=== PATIENT | female | born 1965 | race Hispanic/Latino ===

== ENCOUNTER 2016-12-20 12:39 | Emergency (ER) | payer BC, OTHER ==
[2016-12-20 12:53] VITALS: BMI 64.3
--- NOTE | 2016-12-20 13:05 | ED PDOC ---
Arrival/HPI - General Chief Complaint: Trauma Time Seen by Provider: 12/20/16 12:50 Historian: Patient - History of Present Illness Narrative History of Present Illness (Text): 12/20/16 12:59 A 51 year old morbidly obese female, who denies any significant past medical history, presents to the emergency department for left sided shoulder pain, which began immediately prior to arrival from tripping over a sheet at work. 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 The patient denies any head trauma, back pain, neck pain, chest pain, headaches, nausea, dizziness, or any other complaints at this time. Time/Duration: Prior to Arrival Symptom Onset: Sudden Symptom Course: Unchanged Activities at Onset: Significant (tripped over a sheet ) Context: Work Associated Symptoms (Text): 12/20/16 13:26 Patient works in a hotel and just prior to arrival she tripped and fell over a sheet injuring her nondominant left upper extremity. No head trauma. No neck pain. Past Medical History - Provider Review Nursing Documentation Reviewed: Yes - Past History Past History: No Previous - Infectious Disease Hx of Infectious Diseases: None - Reproductive Menopause: Yes - Cardiac Hx Hypertension: Yes - Endocrine/Metabolic Hx Hypothyroidism: Yes - Psychiatric Hx Substance Use: No - Anesthesia Hx Anesthesia: No Family/Social History - Physician Review Nursing Documentation Reviewed: Yes Family/Social History: No Known Family HX Smoking Status: Former Smoker Hx Alcohol Use: No Hx Substance Use: No Hx Substance Use Treatment: No Allergies/Home Meds Allergies/Adverse Reactions: Allergies No Known Allergies Allergy (Verified 12/20/16 12:58) Home Medications: Home Meds Medication Instructions Recorded Confirmed Levothyroxine [Levothyroxine] 150 mcg PO DAILY 01/06/13 12/20/16 Lisinopril/Hydrochlorothiazide 1 tab PO DAILY 01/06/13 12/20/16 [Lisinopril and Hydrochlorothiazide 25 mg-20 M] Lovastatin 40 mg PO DAILY 01/06/13 12/20/16 Review of Systems - Physician Review All systems were reviewed & negative as marked: Yes - Review of Systems Cardiovascular: absent: Chest Pain Gastrointestinal: absent: Nausea Musculoskeletal: Other (left shoulder pain ). absent: Back Pain, Neck Pain Neurological: absent: Headache, Dizziness Physical Exam Vital Signs Reviewed: Yes Vital Signs Temp Pulse Resp BP Pulse Ox 12/20/16 12:58 98.2 F 86 18 151/99 H 97 Temperature: Afebrile Blood Pressure: Hypertensive Pulse: Regular Respiratory Rate: Normal Appearance: Positive for: Well-Appearing, Non-Toxic, Comfortable, Other ( Morbidly obese) Pain Distress: None Mental Status: Positive for: Alert and Oriented X 3 - Systems Exam Head: Present: Atraumatic, Normocephalic Pupils: Present: PERRL Extroacular Muscles: Present: EOMI Conjunctiva: Present: Normal Mouth: Present: Moist Mucous Membranes Neck: Present: Normal Range of Motion. No: MIDLINE TENDERNESS, Paraspinal Tenderness Respiratory/Chest: Present: Clear to Auscultation, Good Air Exchange. No: Respiratory Distress, Accessory Muscle Use Cardiovascular: Present: Regular Rate and Rhythm, Normal S1, S2. No: Murmurs Abdomen: Present: Normal Bowel Sounds. No: Tenderness, Distention, Peritoneal Signs Back: Present: Normal Inspection. No: CVA Tenderness, Midline Tenderness, Paraspinal Tenderness Upper Extremity: Present: Normal ROM, NORMAL PULSES, Tenderness (Tenderness to the mid humerus), Neurovascularly Intact. No: Edema, Swelling, Erythema, Deformity Lower Extremity: Present: Normal Inspection. No: Edema Neurological: Present: GCS=15, CN II-XII Intact, Speech Normal, Motor Func Grossly Intact Medical Decision Making ED Course and Treatment: 12/20/16 13:09 Impression: A 51 year old female with left shoulder pain. Differential Diagnosis included but are not limited to: Plan: -- Radiology: Left humerus -- Reassess and disposition Progress Notes: - RAD Interpretation Radiology Orders: 12/20/16 12:58 HUMERUS LEFT [RAD] Stat Left humerus shows DJD with no fracture or dislocation. Rectification Printer: ED Physician - Scribe Statement The provider has reviewed the documentation as recorded by the Efrain Lau Provider Scribe Attestation: All medical record entries made by the Scribe were at my direction and personally dictated by me. I have reviewed the chart and agree that the record accurately reflects my personal performance of the history, physical exam, medical decision making, and the department course for this patient. I have also personally directed, reviewed, and agree with the discharge instructions and disposition. Disposition/Present on Arrival - Present on Arrival Any Indicators Present on Arrival: No History of DVT/PE: No History of Uncontrolled Diabetes: No Urinary Catheter: No History of Decub. Ulcer: No History Surgical Site Infection Following: None - Disposition Have Diagnosis and Disposition been Completed?: Yes Diagnosis: Contusion of arm, left Disposition: HOME/ ROUTINE Disposition Time: 13:31 Patient Plan: Discharge Patient Problems: Current Active Problems Problem Status Onset Contusion of arm, left Acute Condition: GOOD Discharge Instructions (ExitCare): Contusion in Adults (ED) Additional Instructions: Rest ice and elevation. Tylenol or Advil as directed on bottle as needed. Follow -up with your PMD. Follow-up in the ER as needed. Prescriptions: Tramadol HCl [Ultram] 50 mg PO Q6 PRN #15 tab PRN Reason: Pain Forms: [facility] (Italian), WORK NOTE
[2016-12-20 13:36] VITALS: TEMP 98.2
[2016-12-20 13:43] VITALS: BP 130/75; PULSE 82; RESP 17; O2SAT 98
--- NOTE | 2016-12-20 13:48 | RAD ---
PROCEDURE: Radiographs of the left humerus. HISTORY: Trauma COMPARISON: None. FINDINGS: BONES: Bone alignment and mineralization are normal. There is no acute displaced fracture or bone destruction. SOFT TISSUES: Normal. OTHER FINDINGS: None. IMPRESSION: No acute fracture or dislocation.
== END 2016-12-20 13:50 | disposition home or self-care (01) ==
LOC: ED 12:39
DX: S40.022A Contusion of left upper arm, initial encounter (principal); W01.0XXA Fall on same level from slipping, tripping and stumbling without subsequent striking against object, initial encounter; Y93.89 Activity, other specified; Y92.59 Other trade areas as the place of occurrence of the external cause; Y99.0 Civilian activity done for income or pay

== ENCOUNTER 2016-12-20 17:53 | Emergency (ER) | payer OTHER, BC ==
[2016-12-20 17:53] VITALS: BMI 64.3
[2016-12-20 18:20] VITALS: BP 132/82; PULSE 96; RESP 18; TEMP 98.4; O2SAT 96
--- NOTE | 2016-12-20 19:22 | ED PDOC ---
Arrival/HPI - General Chief Complaint: Back Pain Time Seen by Provider: 12/20/16 18:35 Historian: Patient - History of Present Illness Narrative History of Present Illness (Text): 12/20/16 19:15 51 yo F reports pain in the R lower back, beginning after she tripped and fell at work over a sheet earlier today, states that she was already evaluated in the ER today regarding the same fall, however at that time she had no back pain. Otherwise: (-) head injury, (-) neck pain, (-) headache, (-) chest pain , (-) SOB, (-) paresthesias, (-) weakness, (-) acute bowel or bladder dysfunction, (-) extremity injury, (-) other complaints. PMD C[facility] Past Medical History - Provider Review Nursing Documentation Reviewed: Yes - Past History Past History: No Previous - Infectious Disease Hx of Infectious Diseases: None - Reproductive Menopause: Yes - Cardiac Hx Cardiac Disorders: Yes Hx Hypertension: Yes - Pulmonary Hx Respiratory Disorders: No - Neurological Hx Neurological Disorder: No - HEENT Hx HEENT Disorder: No - Renal Hx Renal Disorder: No - Endocrine/Metabolic Hx Endocrine Disorders: Yes Hx Hypothyroidism: Yes - Hematological/Oncological Hx Blood Disorders: No - Integumentary Hx Dermatological Disorder: No - Musculoskeletal/Rheumatological Hx Musculoskeletal Disorders: No - Gastrointestinal Hx Gastrointestinal Disorders: No - Genitourinary/Gynecological Hx Genitourinary Disorders: No - Psychiatric Hx Psychophysiologic Disorder: No Hx Substance Use: No - Surgical History Hx Orthopedic Surgery: Yes (Hip Surgery) - Anesthesia Hx Anesthesia: No Family/Social History - Physician Review Nursing Documentation Reviewed: Yes Family/Social History: No Known Family HX Smoking Status: Former Smoker Hx Alcohol Use: No Hx Substance Use: No Hx Substance Use Treatment: No Allergies/Home Meds Allergies/Adverse Reactions: Allergies No Known Allergies Allergy (Verified 12/20/16 12:58) Home Medications: Home Meds Medication Instructions Recorded Confirmed Levothyroxine [Levothyroxine] 150 mcg PO DAILY 01/06/13 12/20/16 Lisinopril/Hydrochlorothiazide 1 tab PO DAILY 01/06/13 12/20/16 [Lisinopril and Hydrochlorothiazide 25 mg-20 M] Lovastatin 40 mg PO DAILY 01/06/13 12/20/16 Review of Systems - Review of Systems Constitutional: Normal. absent: Fatigue, Weight Change, Fevers Respiratory: Normal. absent: SOB, Cough, Sputum Cardiovascular: Normal. absent: Chest Pain, Palpitations, Edema Musculoskeletal: Normal, Arthralgias, Back Pain. absent: Neck Pain, Joint Swelling Skin: Normal. absent: Rash, Pruritis, Skin Lesions Neurological: Normal. absent: Headache, Dizziness, Focal Weakness Physical Exam - Physical Exam Narrative Physical Exam (Text): 12/20/16 19:26 GENERAL APPEARANCE: Patient is awake, alert, oriented x 3, in mild painful distress. SKIN: Warm, dry; (-) cyanosis. EYES: (-) conjunctival pallor. ENMT: Mucous membranes moist. NECK: (-) tenderness, (-) stiffness, (-) lymphadenopathy. CHEST AND RESPIRATORY: (-) rales, (-) rhonchi, (-) wheezes; breath sounds equal bilaterally. HEART AND CARDIOVASCULAR: (-) irregularity; (-) murmur, (-) gallop. ABDOMEN AND GI: Soft; (-) tenderness; (-) palpable mass. BACK: Diffusely tender R paralumbar area, (-) spasm, (+) direct bony tenderness of the L spine, (-) deformity. Straight leg raising (-) bilaterally. EXTREMITIES: (-) deformity. Distal pulses good bilaterally. NEURO AND PSYCH: Mental status as above. Intact sensation bilaterally; normal strength in extension of the knees, plantar and dorsiflexion of the toes. DTRs symmetric. Vital Signs Temp Pulse Resp BP Pulse Ox 12/20/16 18:19 98.4 F 96 H 18 132/82 96 Medical Decision Making ED Course and Treatment: 12/20/16 19:26 51 yo F reports pain in the R lower back, beginning after she tripped and fell at work over a sheet earlier today. Plan : - XR L spine - Flexeril po XR L spine: moderate djd, no fracture, no dislocation, as read by PA Patient advised that official radiology read of XR is still pending and will call the patient if there is any discrepancy within 24 hours. XR results d/w the patient in great detail. On re-evaluation, patient is sitting comfortably in no acute distress. Patient advised to continue taking tramadol for pain, will give Rx for flexeril. Instructed to follow up with primary care physician or workman's comp in 1-2 days without fail. Return to the emergency room at any time for any new or worsening symptoms. Patient states she fully agrees with and understands discharge instructions. States that she agrees with the plan and disposition. Verbalized and repeated discharge instructions and plan. I have given the patient opportunity to ask any additional questions. - RAD Interpretation Radiology Orders: 12/20/16 19:00 LS SPINE WITH OBL > 18 YRS OLD [RAD] Stat - Medication Orders Current Medication Orders: Discontinued Medications Cyclobenzaprine HCl (Flexeril) 10 mg PO STAT STA Stop: 12/20/16 19:01 Last Admin: 12/20/16 19:53 Dose: 10 mg - PA / EQUINE VET / Resident Statement MD/DO has reviewed & agrees with the documentation as recorded. Disposition/Present on Arrival - Present on Arrival Any Indicators Present on Arrival: No History of DVT/PE: No History of Uncontrolled Diabetes: No Urinary Catheter: No History of Decub. Ulcer: No History Surgical Site Infection Following: None - Disposition Have Diagnosis and Disposition been Completed?: Yes Diagnosis: Back pain Disposition: HOME/ ROUTINE Disposition Time: 19:45 Patient Plan: Discharge Condition: STABLE Discharge Instructions (ExitCare): Back Pain (ED) Print Language: MONGOLIAN Additional Instructions: Thank you for letting us take care of you today. You were treated for back pain , s/p fall. The emergency medical care you received today was directed at your acute symptoms. If you were prescribed any medication, please fill it and take as directed. It may take several days for your symptoms to resolve. Return to the Emergency Department if your symptoms worsen, do not improve, or if you have any other problems. Please contact your doctor in 2 days for re-evaluation and follow up / or call one of the physicians/clinics you have been referred to that are listed on the Patient Visit Information form that is included in your discharge packet. Bring any paperwork you were given at discharge with you along with any medications you are taking to your follow up visit. Our treatment cannot replace ongoing medical care by a primary care provider (PCP) outside of the emergency department. Thank you for allowing the [facility] team to be part of your care today. If you had an X-Ray: A Radiologist will review the ED reading if any change in treatment is needed we will contact you. Prescriptions: Cyclobenzaprine [Cyclobenzaprine HCl] 10 mg PO TID PRN #15 tab PRN Reason: Muscle Spasm Forms: [facility] (Hebrew)
--- NOTE | 2016-12-21 08:52 | RAD ---
PROCEDURE: Radiographs of the Lumbar Spine. HISTORY: back pain, fall COMPARISON: No prior. FINDINGS: Limited positioning. BONES: There is an apparent reversal the upper cervical curvature. No fracture or definite spondylolisthesis appreciable. Advanced multilevel degenerate spondylosis appreciate diffusely seen worst at the L1-2 disc interspace level where vacuum disc changes are identified throughout with endplate sclerosis and gross osteophyte formation. No suspicious lytic or blastic change. DISC SPACES: Diffusely diminished. OTHER FINDINGS: None. IMPRESSION: Extensive degenerative disease appreciate diffusely throughout the lumbar spine. Reversal of upper cervical curvature appears mild. Further characterization can be provided by MRI or CT if clinically warranted.
== END 2016-12-20 20:19 | disposition home or self-care (01) ==
LOC: ED 17:53
DX: M54.5 Low back pain (principal)